=== PATIENT | female | born 2000 | race Caucasian/White ===

== ENCOUNTER 2025-01-02 10:11 | Emergency (ER) | payer MEDICAID, OTHER ==
[~2025-01-02] VITALS: Ht 170.2 cm; Wt 112.7 kg
[2025-01-02 10:14] VITALS: TEMP 97.7
[2025-01-02 11:26] LABS: BASO # 0.1 10^3/uL (0.0-0.2); BASO % 0.7 % (0.0-1.0); EOS # 0.1 10^3/uL (0.0-0.5); EOS % 1.0 % (0.0-3.0); LYMPH # 3.3 10^3/uL (1.5-5.0); LYMPH % 36.2 % (24.0-44.0); MONO # 0.7 10^3/uL (0.0-0.8); MONO % 7.3 % (2.0-8.0); NEUTROPHILS # 5.0 10^3/uL (1.5-8.5); NEUTROPHILS % 54.6 % (36.0-66.0); PLATELET COUNT, AUTOMATED 277 10^3/uL (150-450)
[2025-01-02 12:00] LABS: CALCIUM LEVEL 9.2 MG/DL (8.5-10.1); CARBON DIOXIDE LEVEL 26 MMOL/L (20-31); CHLORIDE LEVEL 102 MMOL/L (98-107); CK-MB VALUE MASS < 1.0 NG/ML (<3.6); CPK CREATINE PHOSPHOKINASE 49 U/L (34-145); CREATININE FOR GFR 1.00 MG/DL (0.55-1.30); GLOMERULAR FILTRATION RATE 80.7 (>60); POTASSIUM SERUM 4.4 MMOL/L (3.5-5.1); SODIUM LEVEL 139 MMOL/L (136-145)
[2025-01-02 12:26] LABS: HCG, SERUM QUALITATIVE NEGATIVE (NEGATIVE)
[2025-01-02] MEDS: NS (Normal Saline) 0.9% 1,000 ML IV ONE (15:05)
[2025-01-02] MEDS: KETOROLAC 30 MG/ML 1 ML VIAL IV ONE (16:37)
[2025-01-02 17:45] VITALS: BP 107/64; O2SAT 100
== END 2025-01-02 17:53 | disposition home or self-care (01) ==
LOC: M ED 10:11
DX: R55 Syncope and collapse (principal); E11.9 Type 2 diabetes mellitus without complications
CPT/HCPCS: 80048; 82550; 82553; 84484; 84703; 85025; 93005; 93041; 96361; 96374; 99285; J1885

== ENCOUNTER → 2025-04-14 | Outpatient (REF) | payer MEDICAID, OTHER ==
[2025-04-14 18:06] LABS: BASO # 0.0 10^3/uL (0.0-0.2); BASO % 0.4 % (0.0-1.0); EOS # 0.1 10^3/uL (0.0-0.5); EOS % 0.7 % (0.0-3.0); LYMPH # 3.6 10^3/uL (1.5-5.0); LYMPH % 36.8 % (24.0-44.0); MONO # 0.4 10^3/uL (0.0-0.8); MONO % 4.6 % (2.0-8.0); NEUTROPHILS # 5.5 10^3/uL (1.5-8.5); NEUTROPHILS % 57.2 % (36.0-66.0); PLATELET COUNT, AUTOMATED 304 10^3/uL (150-450)
[2025-04-14 18:24] LABS: ESTIMATED AVERAGE GLUCOSE 105.0 MG/DL (60-110)
[2025-04-14 18:32] LABS: ALT/SGPT 51 U/L (7.0-40); AST/SGOT 37 U/L (<34); CALCIUM LEVEL 8.9 MG/DL (8.5-10.1); CARBON DIOXIDE LEVEL 25 MMOL/L (20-31); CHLORIDE LEVEL 107 MMOL/L (98-107); CHOLESTEROL LEVEL 145 MG/DL (<200); CHOLESTEROL RISK RATIO 3.84 (<5); CREATININE FOR GFR 0.90 MG/DL (0.55-1.30); FREE T4 1.35 NG/DL (0.89-1.76); GLOMERULAR FILTRATION RATE > 90.0 (>60); LDL CHOLESTEROL 94.9 MG/DL (<100); NON-HDL-C 107.3 MG/DL; POTASSIUM SERUM 4.6 MMOL/L (3.5-5.1); SODIUM LEVEL 143 MMOL/L (136-145); TRIGLYCERIDES LEVEL 62 MG/DL (<150)
== END ==
LOC: M SFHCLERA 09:44
PROVIDERS: ATTEND Student in an Organized Health Care Education/Training Program
DX: Z00.00 Encounter for general adult medical examination without abnormal findings (principal)

== ENCOUNTER → 2025-05-08 | Outpatient (CLI) | payer OTHER | LOC: M CARPUL 16:11 | PROVIDERS: ATTEND Internal Medicine Cardiovascular Disease | DX: R06.02 Shortness of breath (principal); R94.31 Abnormal electrocardiogram [ECG] [EKG] ==

== ENCOUNTER → 2025-06-04 | Outpatient (REF) ==
[~2025-06-04] MED LIST: AMOX500C PO; GABA-1171; TIRZ10PE; TRAZ-257; ZONI50CA11
== END ==
LOC: M EMP 15:42
PROVIDERS: ATTEND Family Medicine
DX: Z01.89 Encounter for other specified special examinations (principal)

== ENCOUNTER 2025-06-05 16:12 | Emergency (ER) | payer OTHER ==
[~2025-06-05] VITALS: Ht 170.2 cm; Wt 115.9 kg
[2025-06-05] MEDS ORDERED: ZONI50CA11 (16:26)
[2025-06-05] MEDS ORDERED: TIRZ10PE (16:26)
[2025-06-05] MEDS ORDERED: TRAZ-257 (16:26)
[2025-06-05] MEDS ORDERED: GABA-1171 (16:26)
[2025-06-05] MEDS ORDERED: AMOX500C PO (19:52)
[2025-06-05 19:58] VITALS: BP 128/76; TEMP 98.9; O2SAT 99
== END 2025-06-05 20:12 | disposition home or self-care (01) ==
LOC: M ED 19:35
DX: J02.0 Streptococcal pharyngitis (principal)

== ENCOUNTER → 2025-06-17 | Outpatient (CLI) | payer OTHER | LOC: M WUC 13:00 | PROVIDERS: ATTEND Student in an Organized Health Care Education/Training Program | DX: M25.571 Pain in right ankle and joints of right foot (principal); M25.572 Pain in left ankle and joints of left foot ==